=== PATIENT | female | born 1980 | race Caucasian/White ===

== ENCOUNTER 2018-11-15 19:38 | Inpatient (IN) | payer OTHER ==
[~2018-11-15] VITALS: Ht 154.9 cm; Wt 59.9 kg
[2018-11-15] VITALS (64 sets, daily range): O2SAT 61–100
[2018-11-15 20:38] LABS: BASO % 0.2 % (0.0-2.0); GRAN # 14.5 (1.4-6.5); HEMOGLOBIN 14.7 g/dl (12.5-16.0); LYMPH # 2.2 (1.2-3.4); LYMPH % 12.4 % (20.0-51.0); MEAN CELL VOLUME 92 fl (80.0-100.0); MEAN CORPUSCULAR HEMOGLOBIN 31 pg (27.0-31.0); MEAN CORPUSCULAR HGB CONC 33 g/dl (33.0-37.0); MEAN PLATELET VOLUME 10.4 fl (7.4-10.4); MONO # 0.8 (0.1-0.6); MONO % 4.7 % (1.7-9.3); PLATELET COUNT 246 K/mm3 (130-400); RED BLOOD COUNT 4.77 M/mm3 (4.10-5.30); REDCELL DISTRIBUTION WIDTH-CV 13.1 % (11.5-14.5)
[2018-11-15 20:45] LABS: ACETONE,SERUM SMALL
[2018-11-15 20:51] LABS: ALANINE AMINOTRANSFERASE 15 U/L (9-52); ALBUMIN 4.6 gm/dL (3.5-5.0); ALKALINE PHOSPHATASE 83 U/L (50-136); ANION GAP 21 mmol/L (7-16); AST,SGOT 23 U/L (15-37); BILIRUBIN,TOTAL 0.4 mg/dL (0.0-1.0); BLOOD UREA NITROGEN 23 mg/dL (7-17); CALCIUM 9.8 mg/dL (8.4-10.2); CHLORIDE 103 mmol/L (98-107); CREATININE, serum 0.97 (0.52-1.25); GLUCOSE 318 mg/dL (74-106); LIPASE 17 U/L (23-300); POTASSIUM 4.4 mmol/L (3.4-5.0); SODIUM 137 mmol/L (137-145); TOTAL PROTEIN 7.6 gm/dL (6.4-8.2)
[2018-11-15 20:52] LABS: CARBON DIOXIDE 14 mmol/L (22-30)
[2018-11-15 21:11] LABS: COLLECTION METHOD CLEAN CATCH
[2018-11-15] MEDS ORDERED: ZOHYDRO ER10 MG PO (21:19)
[2018-11-15] MEDS ORDERED: ASPIRIN 81M81 MG/TA2 PO (21:20)
[2018-11-15] MEDS ORDERED: FLEXERIL 1010 MG/TAB PO (21:20)
[2018-11-15] MEDS ORDERED: PLAVIX 75MG TAB75 MG PO (21:20)
[2018-11-15] MEDS ORDERED: LIPITOR 80MG80 MG PO (21:21)
[2018-11-15] MEDS ORDERED: PROZAC40 MG PO (21:21)
[2018-11-15] MEDS ORDERED: HUMALOG 75/2100 U/ML SQ (21:23)
[2018-11-15 21:26] LABS: MUCOUS Present /lpf; PH 5 (5-8); SQUAMOUS EPITHELIAL 0-2 /hpf; URINE APPEARANCE Clear; URINE BACTERIA None Seen /hpf; URINE BILIRUBIN Negative (NEGATIVE); URINE BLOOD 2+ (NEGATIVE); URINE COLOR Yellow; URINE GLUCOSE 3+ (NEGATIVE); URINE KETONE 2+ (NEGATIVE); URINE LEUKOCYTE ESTERASE Negative (NEGATIVE); URINE NITRATE Negative (NEGATIVE); URINE PROTEIN(semi-quant) Negative (NEGATIVE); URINE RBC 0-2 /hpf; URINE UROBILINOGEN Negative (NEGATIVE)
--- NOTE | 2018-11-15 22:35 | NUR ---
PT ARRIVED TO ICU 6 FROM ED, PT ABLE TO AMBULATE FROM STRECHER TO BED WITH [id number]. C/O CHRONIC BACK PAIN, DENIES N/V. PT CURRENTLY ON INSULIN GTT AT 6U W/ Q1 BG. ST-120 W/OTHER VSS. PT A/O X3, LUNGS CLEAR AND PT ON RA. ABLE TO GET UP TO BEDSIDE COMMODE. ORDERS FOR PARMAR NOTED BUT PT REFUSED. WILL CONTINUE TO MONITOR PT STATUS AND UPDATE PROVIDERS NEEDED.
[2018-11-15 22:43] LABS: MAGNESIUM 2.2 mg/dL (1.6-2.3); PHOSPHOROUS 2.4 mg/dL (2.5-4.5)
[2018-11-16] VITALS (531 sets, daily range): BP systolic 106–147; BP diastolic 63–92; PULSE 119–127; TEMP 98.6–99.7; O2SAT 60–100
[2018-11-16 01:19] LABS: CALCIUM 8.6 mg/dL (8.4-10.2); CREATININE, serum 0.75 (0.52-1.25); POTASSIUM 4.2 mmol/L (3.4-5.0)
[2018-11-16 02:44] LABS: CALCIUM 8.5 mg/dL (8.4-10.2); CREATININE, serum 0.69 (0.52-1.25); POTASSIUM 3.8 mmol/L (3.4-5.0)
[2018-11-16 06:23] LABS: CREATININE, serum 0.63 (0.52-1.25)
--- NOTE | 2018-11-16 07:30 | NUR ---
RECEIVED REPORT FROM RAVI NAVARRETE.
[2018-11-16 08:48] LABS: CALCIUM 8.5 mg/dL (8.4-10.2); CREATININE, serum 0.65 (0.52-1.25); POTASSIUM 4.3 mmol/L (3.4-5.0)
--- NOTE | 2018-11-16 09:11 | NUR ---
MAGGI met with the patient to discuss discharge plan. The patient lives in [place], [place] with her (Mark Anthony) and their two daughters. She states her daughters are nine and shfehgo-kmtla-cii. She reports she was here in [place] visiting her mqazuw-tx-vzl and rbkyzem-rq-iuo. She reports independence with ADLs and has a cane. The patient's PCP is Dr. Fuentes in [place] and she also receives her medications at a [facility] in [place]. She reports no difficulties obtaining or affording her meds. The patient does not have advanced directives and she was not interested in completing them at this time. She states her next of kin and person to contact is her Mar kAnthony. The patient plans to return back to her families house in [place] upon discharge and then she will drive back to [place]. No other identified needs at this time.
[2018-11-16] MEDS ORDERED: NORCO 325 MG-101 TAB PO (10:31)
[2018-11-16 15:34] LABS: CREATININE, serum 0.59 (0.52-1.25); POTASSIUM 3.7 mmol/L (3.4-5.0)
--- NOTE | 2018-11-16 16:22 | NUR ---
REPORT CALLED TO MEDICAL NURSEBRIDGER.
--- NOTE | 2018-11-16 17:24 | NUR ---
PATIENT TRANSFERRED TO MEDICAL ROOM 318. [facility] MADE CONTACT WITH RECEIVING NURSE, BRIDGER. CARE TRANSFERRED AT THIS TIME.
--- NOTE | 2018-11-16 19:35 | NUR ---
Report received from ICU nurse. Patient transported from ICU to floor via wheelchair. Transferred independently with standby assistance. States she has pain to her low back and hips which was reported to be chronic. Lung sounds are clear. Heart rate is regular and tachy. Abdomen is soft and nontender, bowel sounds are active. Radial and pedal pulses are equal and present. No edema is noted to BLEs. Skin is warm, dry and intact. Does have an INT to left ac. Does have an adhesive allergy but states that the IV dressing does not bother her except for mild itching. Patient stated that she wasnt hungry, does have insulin due. Sister in law stated outside of room that she will say that all the time but staff needed to order food for her and gave suggestions as to what she would possibly eat. Food was ordered. No other needs identified. Call light and personal items are within reach.
--- NOTE | 2018-11-16 20:30 | NUR ---
Initial shift assessment done- states having hip/back pain 11/19- will give Dillon as ordered- did not eat any supper- refused, states no apptite, Clara was notified- states to hold the 70/30 insulin tonight- no other requests- family in room visiting-
--- NOTE | 2018-11-17 03:00 | NUR ---
Blood sugar 286- Agigail RESISTANCE MACHINE WELDER SETTER called - states if she will take insulin give 4 Units Novolog- pt not sure of taking insulin at this time- but agreed to the 4 units- states the 6 -8 units was too high of dose- states her sugar goes low quick and wants it checked often
[2018-11-17 04:51] VITALS: BP 132/72; PULSE 121; TEMP 98.7
[2018-11-17 06:05] LABS: BASO % 0.1 % (0.0-2.0); GRAN # 14.8 (1.4-6.5); GRAN % 86.5 % (42.2-75.2); HEMOGLOBIN 14.5 g/dl (12.5-16.0); LYMPH # 1.3 (1.2-3.4); LYMPH % 7.3 % (20.0-51.0); MEAN CELL VOLUME 91 fl (80.0-100.0); MEAN CORPUSCULAR HEMOGLOBIN 31 pg (27.0-31.0); MEAN CORPUSCULAR HGB CONC 34 g/dl (33.0-37.0); MEAN PLATELET VOLUME 10.5 fl (7.4-10.4); MONO # 0.9 (0.1-0.6); MONO % 5.3 % (1.7-9.3); PLATELET COUNT 226 K/mm3 (130-400); RED BLOOD COUNT 4.75 M/mm3 (4.10-5.30); REDCELL DISTRIBUTION WIDTH-CV 13.6 % (11.5-14.5)
[2018-11-17 06:20] LABS: CALCIUM 9.3 mg/dL (8.4-10.2); CREATININE, serum 0.59 (0.52-1.25); POTASSIUM 4.3 mmol/L (3.4-5.0)
--- NOTE | 2018-11-17 06:23 | NUR ---
Quiet night- blood sugar 250 this morning- did not eat this shift- states no appetite,Up to bathroom on own- steady on feet VSS, remains tachy 116-120
--- NOTE | 2018-11-17 07:01 | NUR ---
Received report, patient is awake and alert in bed watching TV. Reported patient has been independent in room without issue. Has no needs currently. Personal items and call light is within reach.
[2018-11-17 07:14] VITALS: BP 140/83; PULSE 129; TEMP 98.7
--- NOTE | 2018-11-17 10:37 | NUR ---
First visit from the mustanger. No needs right now.
[2018-11-17 16:14] VITALS: BP 142/83; PULSE 125; TEMP 99.2
--- NOTE | 2018-11-17 19:25 | NUR ---
Patient declines novolog insulin, will take 70/30 after she eats a peanut butter sandwich. Did offer to order food earlier and patient declined. Report given to oncoming shift. Personal items and call light is within reach.
[2018-11-17 19:40] VITALS: BP 139/82; PULSE 121; TEMP 99.3
--- NOTE | 2018-11-17 22:45 | NUR ---
Report received from RAVI Davis. Patient resting in bed. Vitals within normal limits. IV patent. Patient requests PB&J sandwich to eat before she receives her insulin. Patient also requests Flexeril and Hoxie. States her pain is in her lower back. When administering medications, agreed to take Novolog 70/30 but refused sliding scale insulin. Denies any other needs at this time. Call light within reach. Will continue to monitor blood sugar readings.
[2018-11-17 23:36] VITALS: BP 144/78; PULSE 125; TEMP 99.3
[2018-11-18 03:30] VITALS: BP 146/82; PULSE 124; TEMP 99.2
--- NOTE | 2018-11-18 05:45 | NUR ---
Patient had uneventful night. Patient ate very little. 70/30 Novolog insulin given, but patient refused sliding scale insulin. PRN flexeril and norco given. at beginning of shift. NO current needs, resting in bed, call light within reach.
--- NOTE | 2018-11-18 06:57 | NUR ---
Report given to RAVI Davis
--- NOTE | 2018-11-18 06:58 | NUR ---
Report given to RAVI Davis.
[2018-11-18 07:03] LABS: BASO % 0.2 % (0.0-2.0); GRAN # 8.3 (1.4-6.5); GRAN % 74.9 % (42.2-75.2); HEMATOCRIT 39.7 % (37.0-47.0); HEMOGLOBIN 13.7 g/dl (12.5-16.0); LYMPH # 1.9 (1.2-3.4); LYMPH % 17.3 % (20.0-51.0); MEAN CELL VOLUME 90 fl (80.0-100.0); MEAN CORPUSCULAR HEMOGLOBIN 31 pg (27.0-31.0); MEAN CORPUSCULAR HGB CONC 35 g/dl (33.0-37.0); MEAN PLATELET VOLUME 10.5 fl (7.4-10.4); MONO # 0.8 (0.1-0.6); MONO % 7.1 % (1.7-9.3); PLATELET COUNT 225 K/mm3 (130-400); REDCELL DISTRIBUTION WIDTH-CV 13.7 % (11.5-14.5)
[2018-11-18 07:15] LABS: CALCIUM 8.5 mg/dL (8.4-10.2); CREATININE, serum 0.6 (0.52-1.25); POTASSIUM 3.9 mmol/L (3.4-5.0)
[2018-11-18 07:16] VITALS: BP 147/88; PULSE 124; TEMP 99.7
[2018-11-18] MEDS ORDERED: GLUCOSE TEST ST1 DEV MC (10:03)
--- NOTE | 2018-11-18 11:30 | NUR ---
SW attended clinical rounds. The patient is actually planning on moving to [place] from [place], [place]. The patient was interested in being set up with primary care in [place]. The patient was set up with Dr. Sae Rueda at the [facility]. The patient is to discharge back to her qrdcmon-cc-umj and rynhdo-xb-ird's today, 11/18. No additional needs at this time.
[2018-11-18 11:34] VITALS: BP 139/83; PULSE 133
--- NOTE | 2018-11-18 12:03 | NUR ---
Patient is sitting up in bed, finished with breakfast not long ago. States she ate a little more than usual. States pain medicaion has helped and she is comfortable for now. Is to discharge today, states she can't get a ride home until after 5 this evening. No other needs verbalized. Call light and personal items are within reach.
--- NOTE | 2018-11-18 14:27 | NUR ---
Patient refused Novolog 70/30 this morning as her blood sugar was 158 and she was fearful that she would become hypoglycemic. Said she would take it after breakfast. She did not eat until 1000 and wished to have her blood sugar checked at 1130 and resulted at 344, spoke with patient about taking insulin and she declined the 70/30 and novolog, nursing encouraged taking the insulin but she continued to decline. Reckecked blood sugar at 1330 per patients request resulting at 393. Spoke with patient again about taking insulin and she stated she would take 70/30 only and wished to have it recheked at 1530.
--- NOTE | 2018-11-18 19:30 | NUR ---
Patient discharged home via private vehicle. Taken to car via wheelchair. Discharge instructions provided but did not wish to review. Personal items are sent with patient.
== END 2018-11-18 19:00 | disposition home or self-care (01) | DRG 639 ==
LOC: COL.ER 19:38 → ICU 21:11 → MEDICAL 11-16 15:55 → ICU 11-16 15:55 → MEDICAL 11-16 18:01
PROVIDERS: Emergency Medicine; Nurse Practitioner; Nurse Practitioner Family; Physician Assistant; ADMIT Student in an Organized Health Care Education/Training Program
DX: E10.10 Type 1 diabetes mellitus with ketoacidosis without coma (principal); F32.9 Major depressive disorder, single episode, unspecified; E78.5 Hyperlipidemia, unspecified; G89.29 Other chronic pain; M54.9 Dorsalgia, unspecified; F17.200 Nicotine dependence, unspecified, uncomplicated; K59.09 Other constipation; D72.829 Elevated white blood cell count, unspecified; I25.10 Atherosclerotic heart disease of native coronary artery without angina pectoris; Z95.5 Presence of coronary angioplasty implant and graft; I25.2 Old myocardial infarction; Z79.82 Long term (current) use of aspirin; Z79.02 Long term (current) use of antithrombotics/antiplatelets; Z79.891 Long term (current) use of opiate analgesic
CPT/HCPCS: 99223-AI; 99232-AI; 99239; G0378; J1650; J1815; J2212; J2405; J3480; J7030; J7070

== ENCOUNTER 2018-12-13 08:32 | Emergency (ER) | payer OTHER ==
[~2018-12-13] VITALS: Ht 154.9 cm; Wt 54.5 kg
[~2018-12-13 08:32] MED LIST: ASPIRIN 81M81 MG/TA2 PO; FLEXERIL 1010 MG/TAB PO; GLUCOSE TEST ST1 DEV MC; HUMALOG 75/2100 U/ML SQ; LIPITOR 80MG80 MG PO; NORCO 325 MG-101 TAB PO; PLAVIX 75MG TAB75 MG PO; PROZAC40 MG PO; ZOHYDRO ER10 MG PO
[2018-12-13 08:33] VITALS: TEMP 97
[2018-12-13 09:14] LABS: HEMATOCRIT 43.1 % (37.0-47.0); HEMOGLOBIN 12.7 g/dl (12.5-16.0); MEAN CELL VOLUME 107 fl (80.0-100.0); MEAN CORPUSCULAR HEMOGLOBIN 32 pg (27.0-31.0); MEAN CORPUSCULAR HGB CONC 30 g/dl (33.0-37.0); PLATELET COUNT 318 K/mm3 (130-400); RED BLOOD COUNT 4.02 M/mm3 (4.10-5.30); REDCELL DISTRIBUTION WIDTH-CV 15.3 % (11.5-14.5)
[2018-12-13 09:31] LABS: ACETONE,SERUM MODERATE; BAND 1 % (0-10); LYMPHOCYTE 7 % (20.0-51.0); NEUTROPHILS 89 % (42.0-75.2); PLATELET ESTIMATE NORMAL (NORMAL)
[2018-12-13 09:32] LABS: ALANINE AMINOTRANSFERASE 35 U/L (9-52); ALBUMIN 4.1 gm/dL (3.5-5.0); ALKALINE PHOSPHATASE 115 U/L (50-136); ANION GAP 33 mmol/L (7-16); AST,SGOT 39 U/L (15-37); BILIRUBIN,TOTAL 0.4 mg/dL (0.0-1.0); BLOOD UREA NITROGEN 28 mg/dL (7-17); CHLORIDE 99 mmol/L (98-107); CREATININE, serum 1.42 (0.52-1.25); MAGNESIUM 2.7 mg/dL (1.6-2.3); SODIUM 139 mmol/L (137-145); TOTAL PROTEIN 6.4 gm/dL (6.4-8.2)
[2018-12-13 09:33] LABS: BURR CELLS 2+
[2018-12-13 09:42] LABS: CARBON DIOXIDE 7 mmol/L (22-30); GLUCOSE 948 mg/dL (74-106); POTASSIUM 6.2 mmol/L (3.4-5.0)
[2018-12-13 09:52] LABS: TROPONIN-I < 0.012 ng/mL (0.000-0.035)
[2018-12-13 09:53] LABS: ARTERIAL BLD GAS O2 SATURATION 94.6 % (92-100); ARTERIAL BLD GAS TCO2 CT 3.3; ARTERIAL BLOOD GAS PCO2 11.6 mmHg (35-45); ARTERIAL BLOOD GAS PO2 98.9 mmHg (80-100); ARTERIAL BLOOD GAS pH 7.02 (7.35-7.45)
[2018-12-13 11:55] VITALS: BP 120/58
[2018-12-13 12:30] VITALS: PULSE 135
== END 2018-12-13 12:15 | disposition short-term general hospital (02) ==
LOC: COL.ER 08:32
PROVIDERS: Emergency Medicine
DX: E10.10 Type 1 diabetes mellitus with ketoacidosis without coma (principal); I25.10 Atherosclerotic heart disease of native coronary artery without angina pectoris; Z79.02 Long term (current) use of antithrombotics/antiplatelets
CPT/HCPCS: J1815; J2543; J7030

== ENCOUNTER 2018-12-23 18:43 | Emergency (ER) | payer OTHER ==
[~2018-12-23] VITALS: Ht 157.5 cm; Wt 59.1 kg
[2018-12-23 22:07] VITALS: BP 122/66; PULSE 122
[2018-12-24 01:58] LABS: ALANINE AMINOTRANSFERASE 33 U/L (9-52); ALBUMIN 3.9 gm/dL (3.5-5.0); ALKALINE PHOSPHATASE 124 U/L (50-136); ANION GAP 30 mmol/L (7-16); AST,SGOT 44 U/L (15-37); BILIRUBIN,TOTAL 0.4 mg/dL (0.0-1.0); BLOOD UREA NITROGEN 40 mg/dL (7-17); CALCIUM 8.6 mg/dL (8.4-10.2); CARBON DIOXIDE 7 mmol/L (22-30); CHLORIDE 95 mmol/L (98-107); GLUCOSE 1219 mg/dL (74-106); POTASSIUM 6.3 mmol/L (3.4-5.0); SODIUM 132 mmol/L (137-145); TOTAL PROTEIN 6.2 gm/dL (6.4-8.2)
[2018-12-24 02:08] LABS: ALCOHOL(ethanol),MEDICAL < 10 mg/dL
[2018-12-24 02:10] LABS: HEMATOCRIT 40.1 % (37.0-47.0); HEMOGLOBIN 11.5 g/dl (12.5-16.0); MEAN CELL VOLUME 111 fl (80.0-100.0); MEAN CORPUSCULAR HEMOGLOBIN 32 pg (27.0-31.0); MEAN CORPUSCULAR HGB CONC 29 g/dl (33.0-37.0); MEAN PLATELET VOLUME 10.7 fl (7.4-10.4); PLATELET COUNT 532 K/mm3 (130-400); REDCELL DISTRIBUTION WIDTH-CV 14.7 % (11.5-14.5)
[2018-12-24 02:11] LABS: ANISOCYTOSIS 3+; BAND 27 % (0-10); LYMPHOCYTE 21 % (20.0-51.0); NEUTROPHILS 51 % (42.0-75.2); PLATELET ESTIMATE INCREASED (NORMAL)
[2018-12-24 02:22] LABS: TROPONIN-I < 0.012 ng/mL (0.000-0.035)
== END 2018-12-23 22:07 | disposition short-term general hospital (02) ==
LOC: COL.ER 18:43
PROVIDERS: Emergency Medicine
DX: E10.10 Type 1 diabetes mellitus with ketoacidosis without coma (principal); F32.9 Major depressive disorder, single episode, unspecified; I25.10 Atherosclerotic heart disease of native coronary artery without angina pectoris
CPT/HCPCS: J0696; J1815; J2310; J7030; J7120

== ENCOUNTER 2019-03-22 06:57 | Emergency (ER) | payer MEDICAID ==
[~2019-03-22] VITALS: Ht 154.9 cm; Wt 55.0 kg
[2019-03-22 07:02] VITALS: TEMP 98
[2019-03-22 07:27] LABS: BASO # 0.1 (0.0-0.2); BASO % 0.8 % (0.0-2.0); EOS # 0.1 (0.0-0.7); EOS % 1.7 % (0-4.0); GRAN # 3.4 (1.4-6.5); GRAN % 47.7 % (42.2-75.2); HEMATOCRIT 40.4 % (37.0-47.0); HEMOGLOBIN 12.8 g/dl (12.5-16.0); LYMPH # 2.7 (1.2-3.4); LYMPH % 38.2 % (20.0-51.0); MEAN CELL VOLUME 89 fl (80.0-100.0); MEAN CORPUSCULAR HEMOGLOBIN 28 pg (27.0-31.0); MEAN CORPUSCULAR HGB CONC 32 g/dl (33.0-37.0); MEAN PLATELET VOLUME 10.6 fl (7.4-10.4); MONO # 0.8 (0.1-0.6); MONO % 11.5 % (1.7-9.3); PLATELET COUNT 237 K/mm3 (130-400); RED BLOOD COUNT 4.52 M/mm3 (4.10-5.30); REDCELL DISTRIBUTION WIDTH-CV 14.2 % (11.5-14.5)
[2019-03-22] MEDS ORDERED: LANTUS100 U/ML SQ (07:32)
[2019-03-22] MEDS ORDERED: LIPITOR 80MG80 MG PO (07:33)
[2019-03-22 07:41] LABS: ACETONE,SERUM NEGATIVE; INR 0.8 (0.8-3.0); PROTHROMBIN TIME 9.6 SECONDS (9.7-12.8)
[2019-03-22 07:43] LABS: PARTIAL THROMBOPLASTIN TIME 29.1 SECONDS (26.0-37.0)
[2019-03-22 07:46] LABS: ALANINE AMINOTRANSFERASE 54 U/L (9-52); ALBUMIN 4.1 gm/dL (3.5-5.0); ALKALINE PHOSPHATASE 59 U/L (50-136); ANION GAP 6 mmol/L (7-16); AST,SGOT 38 U/L (15-37); BILIRUBIN,TOTAL 0.3 mg/dL (0.0-1.0); BLOOD UREA NITROGEN 29 mg/dL (7-17); CALCIUM 9.3 mg/dL (8.4-10.2); CARBON DIOXIDE 27 mmol/L (22-30); CHLORIDE 106 mmol/L (98-107); CREATININE, serum 0.69 (0.52-1.25); GLUCOSE 168 mg/dL (74-106); LIPASE 101 U/L (23-300); PHOSPHOROUS 3.4 mg/dL (2.5-4.5); POTASSIUM 4.6 mmol/L (3.4-5.0); SODIUM 139 mmol/L (137-145); TOTAL PROTEIN 6.9 gm/dL (6.4-8.2)
[2019-03-22 08:01] LABS: TROPONIN-I < 0.012 ng/mL (0.000-0.035)
[2019-03-22 08:26] LABS: COLLECTION METHOD CLEAN CATCH
[2019-03-22 09:13] LABS: URINE RBC 0-2 /hpf
[2019-03-22 09:14] LABS: URINE BACTERIA Moderate /hpf
[2019-03-22 09:15] LABS: MUCOUS Present /lpf; PH 6 (5-8); URINE APPEARANCE Clear; URINE COLOR Yellow; URINE PROTEIN(semi-quant) 1+ (NEGATIVE)
[2019-03-22 09:16] LABS: URINE BILIRUBIN Negative (NEGATIVE); URINE BLOOD Negative (NEGATIVE); URINE GLUCOSE 3+ (NEGATIVE); URINE KETONE Negative (NEGATIVE); URINE LEUKOCYTE ESTERASE Negative (NEGATIVE); URINE NITRATE Negative (NEGATIVE); URINE UROBILINOGEN Negative (NEGATIVE)
[2019-03-22] MEDS ORDERED: AMOXICILLIN 8751 TAB PO (13:04)
[2019-03-22] MEDS ORDERED: ANTIVERT 25MG25 MG PO (13:04)
[2019-03-22] MEDS ORDERED: NORCO 325 MG-51 TAB PO (13:04)
[2019-03-22 13:30] VITALS: BP 121/70; PULSE 89
[2019-03-22] MEDS ORDERED: WALKER MC (13:31)
== END 2019-03-22 13:30 | disposition home or self-care (01) ==
LOC: COL.ER 06:57
PROVIDERS: Emergency Medicine
DX: R51 Headache (principal); R00.2 Palpitations; I10 Essential (primary) hypertension; E10.9 Type 1 diabetes mellitus without complications; E78.5 Hyperlipidemia, unspecified; I25.10 Atherosclerotic heart disease of native coronary artery without angina pectoris; F17.210 Nicotine dependence, cigarettes, uncomplicated; Z79.02 Long term (current) use of antithrombotics/antiplatelets; Z95.5 Presence of coronary angioplasty implant and graft; W18.30XA Fall on same level, unspecified, initial encounter; Y93.01 Activity, walking, marching and hiking
CPT/HCPCS: J1170; J1815; J7030; Q9967

== ENCOUNTER 2019-05-02 10:40 | Emergency (ER) | payer MEDICAID ==
[~2019-05-02] VITALS: Ht 154.9 cm; Wt 56.6 kg
[~2019-05-02 10:40] MED LIST changes: +AMOXICILLIN 8751 TAB PO; +ANTIVERT 25MG25 MG PO; +LANTUS100 U/ML SQ; +NORCO 325 MG-51 TAB PO; +WALKER MC
[2019-05-02 10:45] VITALS: TEMP 98.6
[2019-05-02 11:10] LABS: COLLECTION METHOD CLEAN CATCH
[2019-05-02 11:18] LABS: PH 6 (5-8); SQUAMOUS EPITHELIAL 0-2 /hpf; URINE APPEARANCE Clear; URINE BACTERIA None Seen /hpf; URINE BILIRUBIN Negative (NEGATIVE); URINE BLOOD Negative (NEGATIVE); URINE COLOR Straw; URINE GLUCOSE 1+ (NEGATIVE); URINE KETONE Negative (NEGATIVE); URINE LEUKOCYTE ESTERASE Negative (NEGATIVE); URINE NITRATE Negative (NEGATIVE); URINE PROTEIN(semi-quant) Negative (NEGATIVE); URINE RBC 0-2 /hpf; URINE UROBILINOGEN Negative (NEGATIVE)
[2019-05-02 11:28] LABS: TRICYCLIC ANTIDEPRESS URINE NEGATIVE
[2019-05-02 12:18] LABS: BASO # 0.1 (0.0-0.2); EOS # 0.1 (0.0-0.7); EOS % 1.1 % (0-4.0); GRAN # 2.9 (1.4-6.5); GRAN % 47.4 % (42.2-75.2); HEMOGLOBIN 12.9 g/dl (12.5-16.0); LYMPH # 2.5 (1.2-3.4); LYMPH % 40.1 % (20.0-51.0); MEAN CELL VOLUME 87 fl (80.0-100.0); MEAN CORPUSCULAR HEMOGLOBIN 27 pg (27.0-31.0); MEAN CORPUSCULAR HGB CONC 32 g/dl (33.0-37.0); MEAN PLATELET VOLUME 10.4 fl (7.4-10.4); MONO # 0.6 (0.1-0.6); MONO % 10.2 % (1.7-9.3); PLATELET COUNT 303 K/mm3 (130-400); RED BLOOD COUNT 4.71 M/mm3 (4.10-5.30)
[2019-05-02 12:22] LABS: ALANINE AMINOTRANSFERASE 38 U/L (9-52); ALBUMIN 4.1 gm/dL (3.5-5.0); ALKALINE PHOSPHATASE 77 U/L (50-136); ANION GAP 7 mmol/L (7-16); AST,SGOT 36 U/L (15-37); BILIRUBIN,TOTAL 0.3 mg/dL (0.0-1.0); BLOOD UREA NITROGEN 18 mg/dL (7-17); CALCIUM 9.3 mg/dL (8.4-10.2); CARBON DIOXIDE 30 mmol/L (22-30); CHLORIDE 105 mmol/L (98-107); CREATININE, serum 0.62 (0.52-1.25); GLUCOSE 67 mg/dL (74-106); MAGNESIUM 1.8 mg/dL (1.6-2.3); POTASSIUM 4.2 mmol/L (3.4-5.0); SODIUM 141 mmol/L (137-145); TOTAL PROTEIN 7.1 gm/dL (6.4-8.2)
[2019-05-02 12:23] LABS: ACETAMINOPHEN < 10 ug/mL (10-30); ALCOHOL(ethanol),MEDICAL < 10 mg/dL
[2019-05-02 13:13] LABS: ACETONE,SERUM NEGATIVE
[2019-05-02 18:30] VITALS: BP 123/80; PULSE 100
== END 2019-05-02 18:30 ==
LOC: COL.ER 10:40
PROVIDERS: Emergency Medicine
DX: F32.9 Major depressive disorder, single episode, unspecified (principal); R45.851 Suicidal ideations; E78.5 Hyperlipidemia, unspecified; I25.10 Atherosclerotic heart disease of native coronary artery without angina pectoris; E10.9 Type 1 diabetes mellitus without complications; F17.210 Nicotine dependence, cigarettes, uncomplicated; Z79.02 Long term (current) use of antithrombotics/antiplatelets

== ENCOUNTER → 2019-05-30 | Outpatient (CLI) | payer MEDICAID | LOC: COL.RAD 09:39 | DX: M24.851 Other specific joint derangements of right hip, not elsewhere classified (principal) | CPT/HCPCS: A9585; Q9967 ==

== ENCOUNTER 2019-11-09 10:38 | Emergency (ER) | payer MEDICAID ==
[~2019-11-09] VITALS: Ht 154.9 cm; Wt 59.1 kg
[2019-11-09 10:45] VITALS: TEMP 98.5
[2019-11-09 11:15] LABS: BASO % 0.7 % (0.0-2.0); EOS # 0.1 (0.0-0.7); GRAN # 2.6 (1.4-6.5); GRAN % 46.6 % (42.2-75.2); HEMOGLOBIN 14.8 g/dl (12.5-16.0); LYMPH # 2.4 (1.2-3.4); LYMPH % 42.2 % (20.0-51.0); MEAN CELL VOLUME 91 fl (80.0-100.0); MEAN CORPUSCULAR HEMOGLOBIN 31 pg (27.0-31.0); MEAN CORPUSCULAR HGB CONC 34 g/dl (33.0-37.0); MEAN PLATELET VOLUME 11.2 fl (7.4-10.4); MONO # 0.5 (0.1-0.6); MONO % 8.3 % (1.7-9.3); PLATELET COUNT 206 K/mm3 (130-400); RED BLOOD COUNT 4.84 M/mm3 (4.10-5.30)
[2019-11-09 11:30] LABS: ALANINE AMINOTRANSFERASE 36 U/L (4-34); ALBUMIN 4.3 gm/dL (3.5-5.0); ALKALINE PHOSPHATASE 62 U/L (50-136); ANION GAP 6 mmol/L (7-16); AST,SGOT 35 U/L (15-37); BILIRUBIN,TOTAL 0.6 mg/dL (0.0-1.0); BLOOD UREA NITROGEN 15 mg/dL (7-17); CALCIUM 9.3 mg/dL (8.4-10.2); CARBON DIOXIDE 26 mmol/L (22-30); CHLORIDE 104 mmol/L (98-107); CREATININE, serum 0.74 (0.52-1.25); GLUCOSE 245 mg/dL (74-106); POTASSIUM 4.3 mmol/L (3.4-5.0); SODIUM 135 mmol/L (137-145); TOTAL PROTEIN 7.2 gm/dL (6.4-8.2)
[2019-11-09 11:40] LABS: TROPONIN-I < 0.012 ng/mL (0.000-0.035)
[2019-11-09 14:15] VITALS: BP 122/78; PULSE 74
== END 2019-11-09 14:30 | disposition home or self-care (01) ==
LOC: COL.ER 10:38
PROVIDERS: Emergency Medicine
DX: R42 Dizziness and giddiness (principal); M79.602 Pain in left arm; I25.10 Atherosclerotic heart disease of native coronary artery without angina pectoris; I25.2 Old myocardial infarction; E11.9 Type 2 diabetes mellitus without complications; Z32.02 Encounter for pregnancy test, result negative; Z79.4 Long term (current) use of insulin; Z79.02 Long term (current) use of antithrombotics/antiplatelets; Z95.5 Presence of coronary angioplasty implant and graft
CPT/HCPCS: J3010; J7030

== ENCOUNTER 2020-10-13 10:45 | Inpatient (IN) | payer MEDICAID ==
[~2020-10-13] VITALS: Ht 154.9 cm; Wt 54.5 kg
[2020-10-13] VITALS (168 sets, daily range): BP systolic 111; BP diastolic 66; PULSE 115; TEMP 99.5; O2SAT 96–100
[2020-10-13 11:23] LABS: BASO # 0.1 (0.0-0.2); BASO % 0.4 % (0.0-2.0); GRAN # 11.7 (1.4-6.5); GRAN % 88.2 % (42.2-75.2); HEMATOCRIT 44.9 % (37.0-47.0); HEMOGLOBIN 14.8 g/dl (12.5-16.0); LYMPH # 1.1 (1.2-3.4); MEAN CELL VOLUME 95 fl (80.0-100.0); MEAN CORPUSCULAR HEMOGLOBIN 31 pg (27.0-31.0); MEAN CORPUSCULAR HGB CONC 33 g/dl (33.0-37.0); MONO # 0.4 (0.1-0.6); PLATELET COUNT 190 K/mm3 (130-400); RED BLOOD COUNT 4.74 M/mm3 (4.10-5.30); REDCELL DISTRIBUTION WIDTH-CV 12.9 % (11.5-14.5)
[2020-10-13 11:31] LABS: ACETONE,SERUM SMALL
[2020-10-13 11:34] LABS: ALANINE AMINOTRANSFERASE 45 U/L (4-34); ALBUMIN 4.5 gm/dL (3.5-5.0); ALKALINE PHOSPHATASE 88 U/L (50-136); ANION GAP 14 mmol/L (7-16); AST,SGOT 48 U/L (15-37); BILIRUBIN,TOTAL 0.7 mg/dL (0.0-1.0); BLOOD UREA NITROGEN 25 mg/dL (7-17); CALCIUM 10.2 mg/dL (8.4-10.2); CARBON DIOXIDE 16 mmol/L (22-30); CHLORIDE 101 mmol/L (98-107); CREATININE, serum 0.95 (0.52-1.25); POTASSIUM 5.2 mmol/L (3.4-5.0); SODIUM 131 mmol/L (137-145); TOTAL PROTEIN 7.2 gm/dL (6.4-8.2)
[2020-10-13 11:41] LABS: GLUCOSE 624 mg/dL (74-106)
[2020-10-13 12:19] LABS: COLLECTION METHOD CLEAN CATCH
[2020-10-13 12:25] LABS: PH 5 (5-8); URINE APPEARANCE Clear; URINE BACTERIA None Seen /hpf; URINE BILIRUBIN Negative (NEGATIVE); URINE BLOOD Negative (NEGATIVE); URINE COLOR Straw; URINE GLUCOSE 3+ (NEGATIVE); URINE KETONE 2+ (NEGATIVE); URINE LEUKOCYTE ESTERASE Negative (NEGATIVE); URINE NITRATE Negative (NEGATIVE); URINE PROTEIN(semi-quant) Negative (NEGATIVE); URINE RBC 0-2 /hpf; URINE UROBILINOGEN Negative (NEGATIVE)
[2020-10-13 17:53] LABS: CALCIUM 8.6 mg/dL (8.4-10.2); CREATININE, serum 0.82 (0.52-1.25); POTASSIUM 3.8 mmol/L (3.4-5.0)
--- NOTE | 2020-10-13 17:56 | NUR ---
PT ADMITTED FROM ED. PT TRANSFERED SELF TO BED. PT'S VSS. PT INSULIN DRIP ON HOLD UNTIL 1809. PT ORIENTED TO ROOM AND FLOOR. WILL ENDORSE TO PT'S RAVI RAMIREZ.
--- NOTE | 2020-10-13 18:00 | NUR ---
Patient alert and oriented and in no distress. Assessement completed. All questions and concerns addressed at this time.
[2020-10-13] MEDS ORDERED: ZYBAN150 M1 (18:41)
[2020-10-13] MEDS ORDERED: AMITRIPTYLINE H75 M1 PO (18:41)
--- NOTE | 2020-10-13 19:15 | NUR ---
Received report from RAVI Vizcarra. Patient resting quietly in bed watching TV. Continues to receive insulin drip. BG 216 during bedside report; drip titrated according to orders. Patient reports back pain 10/19. Carmita notifies Valencia; received orders for PRN tramadol.
--- NOTE | 2020-10-13 20:00 | NUR ---
Assessment complete. Patient resting quietly. All vitals within normal limits. Patient assisted to bedside commode with standby assistance. Tolerates well.
[2020-10-13 20:20] LABS: CALCIUM 8.6 mg/dL (8.4-10.2); CREATININE, serum 0.76 (0.52-1.25)
[2020-10-14] VITALS (500 sets, daily range): BP systolic 99–108; BP diastolic 56–72; PULSE 101–111; TEMP 98.3–98.8; O2SAT 91–100
[2020-10-14 05:45] LABS: CALCIUM 8.1 mg/dL (8.4-10.2); CREATININE, serum 0.69 (0.52-1.25); POTASSIUM 3.6 mmol/L (3.4-5.0)
--- NOTE | 2020-10-14 07:15 | NUR ---
Report given to RAVI Marrufo.
[2020-10-14 07:47] LABS: CALCIUM 8.1 mg/dL (8.4-10.2); CREATININE, serum 0.7 (0.52-1.25); POTASSIUM 3.2 mmol/L (3.4-5.0)
[2020-10-14 14:07] LABS: CALCIUM 8.1 mg/dL (8.4-10.2); CREATININE, serum 0.74 (0.52-1.25); POTASSIUM 4.2 mmol/L (3.4-5.0)
--- NOTE | 2020-10-14 14:10 | NUR ---
Report givent to RAVI Kennedy. PT transported to room 309 via wheelchair without incident. Care relinquished at this time
--- NOTE | 2020-10-14 14:24 | NUR ---
PT UP TO MEDICAL FLOOR AT 1420 WITH BEDSIDE TRANSPORTED BY ICU STAFF. VITALS RAN, HEART RATE IN THE 107'S, BP SOFT AT 105/50, 02 ROOM AIR SATURATION 97 PERCENT, PT A/OX4, PT DENIES PAIN, N/V/D, PT EXPRESSES NO ADDITIONAL NEEDS AT THIS TIME. CALL LIGHT WITHIN REACH.
--- NOTE | 2020-10-14 19:02 | NUR ---
PT HAD UNEVENTFUL DAY, INSULIN ADMINISTERED ORDERED, PT ORDERED DINNER, CURRENTLY EATING. PT EXPRESSES NO ADDITIONAL NEEDS AT THIS TIME. CALL LIGHT WITHIN REACH.
--- NOTE | 2020-10-14 22:32 | NUR ---
pt has been good, looking forward to going home tomorrow. Pain rated 0/10. Will continue to monitor.
[2020-10-15] VITALS: BP 98/53; PULSE 105; TEMP 98.7
[2020-10-15 02:43] VITALS: BP 108/60; PULSE 106; TEMP 98.6
[2020-10-15 06:56] LABS: BASO # 0.1 (0.0-0.2); BASO % 0.7 % (0.0-2.0); EOS # 0.1 (0.0-0.7); EOS % 1.5 % (0-4.0); GRAN # 4.1 (1.4-6.5); GRAN % 56.1 % (42.2-75.2); HEMATOCRIT 40.3 % (37.0-47.0); LYMPH # 2.5 (1.2-3.4); LYMPH % 33.5 % (20.0-51.0); MEAN CELL VOLUME 96 fl (80.0-100.0); MEAN CORPUSCULAR HEMOGLOBIN 31 pg (27.0-31.0); MEAN CORPUSCULAR HGB CONC 32 g/dl (33.0-37.0); MEAN PLATELET VOLUME 11.5 fl (7.4-10.4); MONO # 0.6 (0.1-0.6); MONO % 7.9 % (1.7-9.3); PLATELET COUNT 153 K/mm3 (130-400); RED BLOOD COUNT 4.19 M/mm3 (4.10-5.30); REDCELL DISTRIBUTION WIDTH-CV 13.4 % (11.5-14.5)
[2020-10-15 06:59] LABS: CALCIUM 8.4 mg/dL (8.4-10.2); CREATININE, serum 0.72 (0.52-1.25); POTASSIUM 4.6 mmol/L (3.4-5.0)
--- NOTE | 2020-10-15 07:33 | NUR ---
PT REPORTS FEELING NAUSEATED, BS CURRENTLY AT 392, INSULIN ADMINISTERED ORDERED, NURSE WILL F/U.
[2020-10-15 07:59] VITALS: BP 107/58; PULSE 133; TEMP 97.9
--- NOTE | 2020-10-15 09:27 | NUR ---
SW met with the patient to discuss discharge plan. The patient lives in [place] with her , Gregorio (ph#[phone]), and their 11-year-old daughter. She reports independence with ADLs and does not have any DME. The patient's PCP is Dr. Gopi Bustos and she receives her medications from [facility]. She reports no difficulties obtaining her meds. The patient is on insulin and she states that her insurance does cover for the insulin. The patient does not have a DPOA-HC in EMR, but she states that she does have one completed and that it designates her [id number]-adt, Alona (ph#[phone]). She states that Alona might have a copy of the document. The patient plans to return home with her family upon discharge. No additional needs at this time. *Discharge plan: home with family*
--- NOTE | 2020-10-15 09:37 | NUR ---
NURSE WITNESSED PT'S HELP PT PLACE OMNIPOD INSULIN PUMP ON. PUMP ON AND INFUSING INSULIN. CALL LIGHT WITHIN REACH.
--- NOTE | 2020-10-15 11:25 | NUR ---
PT TRANSPORTED OUT VIA MEDICAL STAFF WITH AT SIDE AT 1125. IV DISCONTINUED, BELONGINGS WITH PT.
== END 2020-10-15 11:25 | disposition home or self-care (01) | DRG 919 ==
LOC: COL.ER 10:45 → ICU 16:42 → MEDICAL 10-14 14:30
PROVIDERS: Nurse Practitioner; Nurse Practitioner Family; ADMIT Student in an Organized Health Care Education/Training Program
DX: T85.694A Other mechanical complication of insulin pump, initial encounter (principal); E10.10 Type 1 diabetes mellitus with ketoacidosis without coma; I25.10 Atherosclerotic heart disease of native coronary artery without angina pectoris; I10 Essential (primary) hypertension; I25.2 Old myocardial infarction; F17.210 Nicotine dependence, cigarettes, uncomplicated; R00.0 Tachycardia, unspecified; D72.829 Elevated white blood cell count, unspecified; T38.3X6A Underdosing of insulin and oral hypoglycemic [antidiabetic] drugs, initial encounter; Z66 Do not resuscitate; Z95.5 Presence of coronary angioplasty implant and graft; Z79.02 Long term (current) use of antithrombotics/antiplatelets; Z96.41 Presence of insulin pump (external) (internal)
CPT/HCPCS: 99223-AI; 99233-AI; 99238; J1650; J1815; J2405; J7030

== ENCOUNTER → 2023-06-01 | Outpatient (CLI) | payer MEDICAID ==
[~2023-06-01] MED LIST changes: +AMITRIPTYLINE H75 M1 PO; +FLAGYL500 MG PO; +HUMALOG100 U/ML; +LANTUS SOLOS100 U/ML; +NEURONTIN100 MG/CAP PO; +NOVOLOG 100U100 U/M1 SQ; +OMNICEF 300MG300 MG PO; +OMNIPOD 51 EACH SQ; +WELLBUTRIN XL300 M1; +ZYBAN150 M1
== END ==
LOC: DIA.ED 14:26
DX: E10.59 Type 1 diabetes mellitus with other circulatory complications (principal); E78.5 Hyperlipidemia, unspecified
CPT/HCPCS: G0108

== ENCOUNTER 2023-10-04 08:53 | Inpatient (IN) | payer MEDICAID ==
[~2023-10-04] VITALS: Ht 154.9 cm; Wt 60.8 kg
[2023-10-04] MEDS ORDERED: NS 1,000 ML IV ONE ×2 (09:30→10:30)
[2023-10-04] MEDS ORDERED: Insulin Regular Human (NovoLIN R/HumuLIN R) IV ONE (09:30)
[2023-10-04] MEDS ORDERED: Ondansetron 4 MG/2 ML VIAL IV ONE (09:45)
[2023-10-04 09:52] LABS: HEMATOCRIT 45.9 % (37.0-47.0); HEMOGLOBIN 14.6 g/dl (12.5-16.0); MEAN CELL VOLUME 93 fl (80.0-100.0); MEAN CORPUSCULAR HEMOGLOBIN 30 pg (27-31); MEAN CORPUSCULAR HGB CONC 32 g/dl (33.0-37.0); MEAN PLATELET VOLUME 11.9 fl (7.4-10.4); PLATELET COUNT 228 K/mm3 (130-400); RED BLOOD COUNT 4.92 M/mm3 (4.10-5.30)
[2023-10-04 10:19] LABS: BAND 7 % (0-10); LYMPHOCYTE 8 % (20.0-51.0); NEUTROPHILS 85 % (42.0-75.2); PLATELET ESTIMATE NORMAL (NORMAL)
[2023-10-04 10:29] LABS: ALBUMIN 4.2 g/dL (3.5-5.0); BILIRUBIN,TOTAL 0.5 mg/dL (0.2-1.2); CREATININE, serum 2.01 mg/dL (0.57-1.11); POTASSIUM 5.3 mEq/L (3.5-4.5); TOTAL PROTEIN 7.3 g/dl (6.2-8.1)
[2023-10-04] MEDS ORDERED: Insulin Human Regular/NS 100 ML IV ONE (10:30)
[2023-10-04 11:40] VITALS: BP 103/54; PULSE 116
[2023-10-04] MEDS ORDERED: Insulin Human Regular/NS 100 ML IV SCH (12:30)
[2023-10-04] MEDS ORDERED: Acetaminophen 500 MG TAB PO PRN (12:30)
[2023-10-04] MEDS ORDERED: NS 1,000 ML IV SCH (12:30)
[2023-10-04] MEDS ORDERED: D5W 1,000 ML IV SCH (12:30)
[2023-10-04] MEDS ORDERED: Ondansetron 4 MG/2 ML VIAL IV PRN (12:30)
[2023-10-04 12:40] VITALS: BP 106/41; PULSE 118
--- NOTE | 2023-10-04 13:28 | NUR ---
PATIENT ARRIVED TO UNIT VIA ER COT ACCOMPANIED BY NETWORKING ADMINISTRATOR. PATIENT NOT IN DISTRESS UPON TRANSFER.
[2023-10-04 14:40] LABS: COLLECTION METHOD CLEAN CATCH
[2023-10-04 14:45] LABS: MAGNESIUM 1.8 mg/dL (1.6-2.6); PHOSPHOROUS 1.3 mg/dL (2.3-4.7)
[2023-10-04 14:46] LABS: CALCIUM 8.7 mg/dL (8.4-10.2); CREATININE, serum 1.48 mg/dL (0.57-1.11); POTASSIUM 4.4 mEq/L (3.5-4.5)
[2023-10-04 14:49] LABS: PH 5.5 (5.0-8.5); URINE APPEARANCE CLEAR (CLEAR/HAZY); URINE BLOOD NEGATIVE (NEGATIVE); URINE COLOR YELLOW (YELLOW); URINE GLUCOSE 3+ (NEGATIVE); URINE KETONE 3+ (NEGATIVE); URINE NITRATE NEGATIVE (NEGATIVE); URINE PROTEIN(semi-quant) NEGATIVE (NEGATIVE); URINE UROBILINOGEN 0.2 E.U/dL (0.2-1.0)
[2023-10-04] MEDS ORDERED: D5 1/2 NS 1,000 ML IV SCH (15:15)
[2023-10-04 16:00] VITALS: BP 118/60; PULSE 115; TEMP 100
[2023-10-04] MEDS ORDERED: Heparin 5,000 UNITS/ML 1 ML VIAL SQ SCH (16:00)
[2023-10-04 17:54] LABS: CALCIUM 8.6 mg/dL (8.4-10.2); CREATININE, serum 1.3 mg/dL (0.57-1.11); MAGNESIUM 1.7 mg/dL (1.6-2.6); PHOSPHOROUS 0.9 mg/dL (2.3-4.7)
[2023-10-04 20:00] VITALS: BP 99/48; PULSE 103; TEMP 99.5
[2023-10-04 21:00] LABS: CALCIUM 8.6 mg/dL (8.4-10.2); CREATININE, serum 1.24 mg/dL (0.57-1.11); POTASSIUM 3.6 mEq/L (3.5-4.5)
[2023-10-04 21:01] LABS: MAGNESIUM 1.6 mg/dL (1.6-2.6)
[2023-10-04 21:27] LABS: PHOSPHOROUS < 0.9 mg/dL (2.3-4.7)
--- NOTE | 2023-10-04 22:07 | NUR ---
PT IS RESTING IN THE BED WATCHING TV. SHE IS ALERT AND ORIENTED. VOIDING IN THE BEDSIDE COMMODE WITH ASSISTANCE. SHE IS ON AN INSULIN DRIP AND FLUIDS. ROOM AIR. NO COMPLAINTS AT THIS TIME. CALL LUIS IS AT THE BEDSIDE.
[2023-10-05] VITALS: BP 80/45; PULSE 96; TEMP 99.2
[2023-10-05] MEDS ORDERED: Magnesium Sulfate 8% 50 ML IV ONE (00:15)
[2023-10-05 01:12] LABS: MAGNESIUM 1.6 mg/dL (1.6-2.6); PHOSPHOROUS 1.2 mg/dL (2.3-4.7)
[2023-10-05 01:23] LABS: CREATININE, serum 0.97 mg/dL (0.57-1.11); POTASSIUM 3.4 mEq/L (3.5-4.5)
[2023-10-05 04:00] VITALS: BP 95/52; PULSE 93; TEMP 98.7
[2023-10-05 05:04] LABS: BASO % 0.2 % (0.0-2.0); GRAN # 12.8 K/mm3 (1.4-6.5); GRAN % 81.5 % (42.2-75.2); LYMPH # 1.9 K/mm3 (1.2-3.4); LYMPH % 12.2 % (20.0-51.0); MEAN CELL VOLUME 89 fl (80.0-100.0); MEAN CORPUSCULAR HGB CONC 33 g/dl (33.0-37.0); MEAN PLATELET VOLUME 11.5 fl (7.4-10.4); MONO # 0.9 K/mm3 (0.1-0.6); MONO % 5.4 % (1.7-9.3); PLATELET COUNT 146 K/mm3 (130-400); RED BLOOD COUNT 3.77 M/mm3 (4.10-5.30); REDCELL DISTRIBUTION WIDTH-CV 14.8 % (11.5-14.5)
[2023-10-05 05:10] LABS: HEMATOCRIT 33.4 % (37.0-47.0); HEMOGLOBIN 11.1 g/dl (12.5-16.0); MEAN CORPUSCULAR HEMOGLOBIN 29 pg (27-31)
[2023-10-05 05:17] LABS: MAGNESIUM 2.7 mg/dL (1.6-2.6); PHOSPHOROUS 1.9 mg/dL (2.3-4.7)
[2023-10-05 08:00] VITALS: BP 92/66; PULSE 83; TEMP 98.8
[2023-10-05] MEDS ORDERED: Glucagon 1 MG VIAL IM PRN (08:00)
[2023-10-05] MEDS ORDERED: Dextrose 50% Water 25 GM/50 ML SYRINGE IV PRN (08:00)
[2023-10-05] MEDS ORDERED: Dextrose (Glucose) 15 GM (4 x 3.75 GM) Chewable TABLET PACK PO PRN (08:00)
--- NOTE | 2023-10-05 08:16 | NUR ---
PT RESTING COMFORTABLY IN BED WITH D5 1/2 RUNNING AT 250ML/HR, INSULIN RUNNING AT 4U/HR TO PERIPHERAL LINE TO L FORARM.
[2023-10-05 09:01] LABS: BASO % 0.2 % (0.0-2.0); EOS % 0.2 % (0.0-4.0); GRAN # 12.6 K/mm3 (1.4-6.5); GRAN % 75.5 % (42.2-75.2); HEMOGLOBIN 12.1 g/dl (12.5-16.0); LYMPH # 2.8 K/mm3 (1.2-3.4); LYMPH % 16.5 % (20.0-51.0); MEAN CELL VOLUME 89 fl (80.0-100.0); MEAN CORPUSCULAR HEMOGLOBIN 30 pg (27-31); MEAN CORPUSCULAR HGB CONC 33 g/dl (33.0-37.0); MEAN PLATELET VOLUME 10.6 fl (7.4-10.4); MONO # 1.2 K/mm3 (0.1-0.6); MONO % 7.2 % (1.7-9.3); PLATELET COUNT 171 K/mm3 (130-400); RED BLOOD COUNT 4.09 M/mm3 (4.10-5.30); REDCELL DISTRIBUTION WIDTH-CV 14.9 % (11.5-14.5)
[2023-10-05 09:04] LABS: HEMATOCRIT 36.4 % (37.0-47.0)
[2023-10-05 09:43] LABS: CALCIUM 8.5 mg/dL (8.4-10.2); CREATININE, serum 0.87 mg/dL (0.57-1.11); POTASSIUM 3.3 mEq/L (3.5-4.5)
[2023-10-05 10:03] LABS: MAGNESIUM 2.4 mg/dL (1.6-2.6)
--- NOTE | 2023-10-05 10:06 | NUR ---
Initial visit; Patient appeared almost tearful but glad to see Calibration Laboratory Technician and thanked her for looking in on her and offering prayer and God's blessings.
--- NOTE | 2023-10-05 10:09 | NUR ---
PT IN BED RESTING. PT IS A&OX4, PLEASANT MOOD, AND RESPONDING APPROPRIATLEY, AND HAS PERRLA. HEART RHYTHM AND RATE ARE WNL, LUNGS CLR ALL MEHTA, AUDIBLE BOWEL SOUNDS ALL QUANDRANTS, NO LOSS OF SENSATION, RADIAL, POST TIB, AND PEDAL ALL EQUAL AND READILY PALPABLE. SKIN INTACT. PT IS D5W 1/2 AT 250ML/HR TO A PERIPHERAL LINE IN HER RIGHT AC. IV SHOWS NO SIGNS PHLEBITIS, INFILTRATION, OR SWELLING. PT BS 96, INSULIN DRIP PUT ON HOLD FOR 30 MINS AND WILL RECHECK BS IN 30 MINS. CALL LIGHT, AND ITEMS IN REACH, WILL CONTINUE POC
--- NOTE | 2023-10-05 10:19 | NUR ---
warehouse worker 2nd shift met with patient to discuss discharge planning. Patient reports she lives in [place] with her two daughters, Concepcion and Sapphire. Patient reports Alona is her best point of contact and her DPOA-HC, P# [phone], second contact is Concepcion (P# [phone]). PCP is Dr. Bustos, Pharmacy is [facility]. Patient expressed her insulin can be expensive. Patient reports she is on Humalog pens and has an insulin pump but her insurance is currently denying to cover pump supplies. Patient explained her PCP and software development engineer are working on figuring out another solution for her pump as she is unable to afford this without her insurance. Patient reports to have no other DME besides her insulin supplies. Patient reports to be independent with ADLS and is able to transport herself but her daughters normally drive her. Patient does not currently have home health services and is working so she would not be considered home bound. SW discussed patient's insulin supplies, patient reports to have long lasting insulin at home but is low on her short acting and pen needles. SW asked if patient is able to afford these supplies, patient stated that she is not able to do so out of pocket. Patient would like to return home when medically ready for discharge. MAGGI left a voicemail for the diabetic education nurse to visit with patient. MAGGI was notified that the diabetic mathematics education professor is not in the office today. MAGGI contacted Alona whom reports she has a copy of the DPOA-HC and would email the form to the social services designee. Alona stated the hospital should have a copy of this form as they brought it to the hospital years ago. MAGGI contacted patient's pharmacy, [facility], to determine patient's cost for her insulin. Patient is due to fill her short acting insulin and would need a prior authorization from her doctor/insurance but then it would be 100% covered by insurance. MAGGI met with patient and explained this and asked if she wanted to have the pharmacy start the prior authorization. Patient stated yes. MAGGI contacted the pharmacy and confirmed the patient would like to begin the prior authorization process, MAGGI left a voicemail with Dr. Bustos's nurse to be on the look out for the pharmacy fax for prior authorization. Sw updated patient's nurse on the information above. Discharge plan: Home
--- NOTE | 2023-10-05 10:50 | NUR ---
0700 - Order received for PICC placement from admission yesterday afternoon. Spoke with ICU nursing staff this AM about the need for the PICC and she she is no longer on drips and will possibly go home today. No PICC line needed at this time.
[2023-10-05] MEDS ORDERED: *Potassium Replacement Protocol MC SCH (11:15)
[2023-10-05 12:00] VITALS: BP 142/88; PULSE 112; TEMP 98.8
[2023-10-05 13:10] LABS: PHOSPHOROUS 1.3 mg/dL (2.3-4.7)
[2023-10-05 13:17] LABS: MAGNESIUM 1.7 mg/dL (1.6-2.6)
[2023-10-05 13:49] LABS: CALCIUM 7.8 mg/dL (8.4-10.2); CREATININE, serum 0.82 mg/dL (0.57-1.11); POTASSIUM 3.1 mEq/L (3.5-4.5)
[2023-10-05] MEDS ORDERED: Potassium Bicarbonate/Citrate 20 MEQ Effervescent TAB PO SCH (15:00)
[2023-10-05 16:00] VITALS: BP 137/91; PULSE 99; TEMP 98.8
[2023-10-05 16:29] LABS: BASO % 0.2 % (0.0-2.0); EOS # 0.1 K/mm3 (0.0-0.7); EOS % 0.6 % (0.0-4.0); GRAN # 7.6 K/mm3 (1.4-6.5); GRAN % 70.4 % (42.2-75.2); HEMATOCRIT 32.7 % (37.0-47.0); HEMOGLOBIN 11.1 g/dl (12.5-16.0); LYMPH # 2.4 K/mm3 (1.2-3.4); LYMPH % 22.6 % (20.0-51.0); MEAN CELL VOLUME 88 fl (80.0-100.0); MEAN CORPUSCULAR HEMOGLOBIN 30 pg (27-31); MEAN CORPUSCULAR HGB CONC 34 g/dl (33.0-37.0); MEAN PLATELET VOLUME 11.4 fl (7.4-10.4); MONO # 0.6 K/mm3 (0.1-0.6); MONO % 5.8 % (1.7-9.3); PLATELET COUNT 155 K/mm3 (130-400); REDCELL DISTRIBUTION WIDTH-CV 14.9 % (11.5-14.5)
[2023-10-05 16:45] LABS: CALCIUM 8.3 mg/dL (8.4-10.2); CREATININE, serum 0.87 mg/dL (0.57-1.11); MAGNESIUM 2.1 mg/dL (1.6-2.6); PHOSPHOROUS 1.6 mg/dL (2.3-4.7); POTASSIUM 3.8 mEq/L (3.5-4.5)
[2023-10-05 20:00] VITALS: BP 114/81; PULSE 94; TEMP 97.7
--- NOTE | 2023-10-05 20:28 | NUR ---
PT IS SITTING AT THE BEDSIDE EATING HER DINNER AND WATCHING TV. SHE IS ALERT AND ORIENTED. SHE IS CURRENTLY ON THE INSULIN DRIP AND IV FLUIDS. SHE AMBULATES TO THE TOILET WITH NO ASSISTANCE. CALL SMITH AT THE BEDSIDE.
[2023-10-05] MEDS ORDERED: Insulin Glargine-ygfn (Lantus) SQ SCH (21:00)
[2023-10-05] MEDS ORDERED: Insulin Lispro (HumaLOG) SQ SCH (21:00)
[2023-10-06] VITALS: BP 122/70; PULSE 86; TEMP 98.7
[2023-10-06 04:00] VITALS: BP 129/72; PULSE 79
[2023-10-06 04:40] LABS: BASO % 0.4 % (0.0-2.0); EOS # 0.1 K/mm3 (0.0-0.7); EOS % 0.8 % (0.0-4.0); GRAN # 3.7 K/mm3 (1.4-6.5); GRAN % 51.8 % (42.2-75.2); HEMOGLOBIN 11.5 g/dl (12.5-16.0); LYMPH # 2.8 K/mm3 (1.2-3.4); LYMPH % 39.4 % (20.0-51.0); MEAN CELL VOLUME 88 fl (80.0-100.0); MEAN CORPUSCULAR HEMOGLOBIN 30 pg (27-31); MEAN CORPUSCULAR HGB CONC 34 g/dl (33.0-37.0); MEAN PLATELET VOLUME 11.5 fl (7.4-10.4); MONO # 0.5 K/mm3 (0.1-0.6); MONO % 7.3 % (1.7-9.3); PLATELET COUNT 143 K/mm3 (130-400); RED BLOOD COUNT 3.85 M/mm3 (4.10-5.30)
[2023-10-06 04:41] LABS: HEMATOCRIT 33.8 % (37.0-47.0)
[2023-10-06 04:52] LABS: CREATININE, serum 0.79 mg/dL (0.57-1.11); MAGNESIUM 1.9 mg/dL (1.6-2.6); PHOSPHOROUS 2.4 mg/dL (2.3-4.7); POTASSIUM 4.2 mEq/L (3.5-4.5)
[2023-10-06 08:00] VITALS: BP 124/65; PULSE 82; TEMP 98.3
--- NOTE | 2023-10-06 10:03 | NUR ---
PATIENT ALERT AND ORIENTED X4 AND PLEASANT. PATIENT DENIES PAIN AND SHORTNESS OF BREATH. ABLE TO AMBULATE TO TOILET TO VOID INDEPENDENTLY. PATIENT RECIEVING SUBCUTANEOUS INSLUIN. PATIENT DOES NOT HAVE ANY QUESTIONS OR CONCERNS AT THIS TIME.
--- NOTE | 2023-10-06 10:09 | NUR ---
Social attended interdisciplinary clinical rounding with Dr. Leija. Patient will discharge home today. Dr. Leija is going to request patient's PCP follow up with patient in a week and recommends diabetic education. Patient will be getting a prescription for her pen needles and short acting insulin. Patient is aware of her current short acting script pending prior authorization. Discharge plan: Home
[2023-10-06] MEDS ORDERED: NOVOLOG 100U100 U/M1 SQ (10:22)
[2023-10-06] MEDS ORDERED: TRUE COMFORT P1 EAC1 MC (10:22)
--- NOTE | 2023-10-06 11:00 | NUR ---
Follow-up visit; Patient thanked Talent Associate for looking in on her again today and said she is doing better. Talent Associate continues to keep her in her prayers.
--- NOTE | 2023-10-06 11:16 | NUR ---
PATIENT DISCHARGED TO HOME WITH DAUGHTER AT THIS TIME. EDUCATION AND DISCHARGE INSTRUCTIONS REVIEWED AND SIGNED. NO DISTRESS NOTED UPON DISCHARGE.
== END 2023-10-06 11:16 | disposition home or self-care (01) | DRG 638 ==
LOC: COL.ER 08:53 → ICU 12:26
PROVIDERS: Family Medicine; ADMIT Internal Medicine
DX: E10.10 Type 1 diabetes mellitus with ketoacidosis without coma (principal); N17.9 Acute kidney failure, unspecified; T38.3X6A Underdosing of insulin and oral hypoglycemic [antidiabetic] drugs, initial encounter; Z66 Do not resuscitate; D72.829 Elevated white blood cell count, unspecified; Z20.822 Contact with and (suspected) exposure to COVID-19; J45.909 Unspecified asthma, uncomplicated; E78.5 Hyperlipidemia, unspecified; I25.10 Atherosclerotic heart disease of native coronary artery without angina pectoris; E86.0 Dehydration; Z91.138 Patient's unintentional underdosing of medication regimen for other reason; Z90.710 Acquired absence of both cervix and uterus; I25.2 Old myocardial infarction; Z95.5 Presence of coronary angioplasty implant and graft; Z88.8 Allergy status to other drugs, medicaments and biological substances
CPT/HCPCS: J1644; J1815; J2405; J3475; J7030; J7050